=== PATIENT | male | born 1960 | race Caucasian/White ===

== ENCOUNTER 2017-01-14 08:58 | Observation (INO) | payer BC, OTHER ==
--- NOTE | ~2017-01-14 | DS ---
Unit #: [id number] #: [id number] Patient: ALEC VANEGAS [id number] [address] [address] [id number] MR#: [id number] NAME: ALEC VANEGAS ROOM: 55 Age: 56 Sex: M Admission Date: 01/14/2017 : 1960 Discharge Date: 01/16/2017 Attending Physician: Deepak Cramer M.D. Primary Care Physician: Natalie Russell M.D. DISCHARGE SUMMARY DISCHARGE DIAGNOSES 1. No known coronary artery disease, status post cardiac catheterization on 01/14/2017 elective case. 2. Status post percutaneous transluminal coronary angioplasty with drug-eluting Synergy stent placement to the mid right coronary artery 4.0 x 32 Synergy drug-eluting stent. 3. The patient underwent elective cardiac catheterization on 01/14/2017. Cardiac cath results are as follows; the patient had 99% in-stent stenosis in the mid right coronary artery. A 4.0 x 32 Synergy drug-eluting stent was placed and stenosis was decreased to approximately 50% and he also had a 70% distal, mid right coronary artery reduced to 0% with a 4 mm drug-eluting Synergy stent placed. Operative note is currently not available for review. 4. First diagonal was not dilated. 5. Previous angioplasties with stent insertion. 6. Last known ejection fraction was 45% per cardiac cath in 2007. 7. Hypertension. 8. Hyperlipidemia. 9. Type 2 diabetes mellitus. 10. Obesity. 11. Obstructive sleep apnea. 12. Tobacco abuse. The patient reports he is mostly quit, but is still smoking on occasion. DISCHARGE MEDICATIONS Metformin 500 mg p.o. b.i.d., Xanax 0.5 mg p.o. q.8 hours as needed for anxiety, carvedilol 6.25 mg p.o. b.i.d., rosuvastatin 40 mg p.o. q.h.s., lisinopril 2.5 mg p.o. daily, aspirin 81 mg p.o. daily, Brilinta 90 mg p.o. b.i.d., spironolactone 12.5 mg p.o. daily, Flexeril 10 mg p.o. t.i.d. as needed for muscle spasms, nitroglycerin tab sublingual 0.4 mg sublingual as needed for chest pain q.5 minutes x3, vitamin D 50,000 units p.o. weekly. HOSPITAL COURSE The patient has routinely followed with Dr. Cramer in the office. He reports he had seen Dr. Cramer and has been describing issues with chest discomfort as well as shortness of breath, therefore, they decided to proceed with repeat cardiac catheterization. This was scheduled electively on 01/14/2017. The patient has a known history of coronary artery disease having undergone angioplasty with stent insertion in the past on the circumflex Unit #: [id number] #: [id number] Patient: ALEC VANEGAS as well as the right coronary artery. Last procedure was 2013, the patient also has undergone repeat cardiac catheterization on 01/14/2017 which showed 99% in-stent stenosis to the mid RCA, this was reduced to 50%. A 4.0 x 32 Synergy drug-eluting stent was placed. The balloon was dilated to 4.7 mm. He also had a 70% distal RCA which was reduced to 0% with a 3.5 x 32 Synergy stent placed. The first diagonal was not dilated. No LVEF is noted per this report. The patient had been admitted and monitored. He did rule out for any acute coronary syndrome. His cardiac rhythm has remained stable. There has been no reperfusion ventricular tachycardia. No further complaints of chest pain in seeing him today. He was felt stable for discharge home. Dr. De La Cruz has agreed. The patient has been ambulated in the hallway without any deficits. His right groin site is soft. No evidence of hematoma or infection. He does have some slight soft bruising noted. Cardiac rhythm remains normal sinus rhythm, no complaints again of chest pain. The patient has been educated on post cardiac cath instructions as well as new medications that were started. CONSULTANTS No consultants. DIAGNOSTIC STUDIES LABORATORY RESULTS: Glucose 110, BUN 13, creatinine 0.7, sodium 140, potassium 4.1, chloride 106, CO2 of 24. Troponins have remained negative. Cholesterol 116, triglycerides 212, LDL 45, HDL 29. Hemoglobin 14.2, hematocrit 41.7, WBCs 8.9, and platelet count 203. CARDIOVASCULAR STUDIES: EKG shows normal sinus rhythm, rate 74 beats per minute, right bundle-branch block, left anterior fascicular block, QTc interval 481 msec. PHYSICAL EXAMINATION GENERAL: This is a pleasant 56-year-old male, who is in no acute distress. VITAL SIGNS: Temperature 97.8, respiratory rate 20, pulse is 81, and blood pressure 98/70 to 107/67. HEENT: Head is atraumatic and normocephalic. Mucous membranes are moist. NECK: Trachea is midline. No JVD. No carotid bruits. CARDIOVASCULAR: S1, S2. Regular rate and rhythm. No murmurs, gallops, or rubs. PULMONARY: LUNGS are clear to auscultation anterior, but diminished in the bases. ABDOMEN: Obese, soft, nontender, and nondistended. EXTREMITIES: Pulses are palpable. No clubbing, cyanosis, or edema. Right groin site from catheterization is soft with slight bruising. No evidence of hematoma or infection is noted. SKIN: Warm and dry. NEUROLOGIC: He is awake, alert, and oriented. He moves all extremities equally. He follows commands with ease. DISCHARGE INSTRUCTIONS The patient has been seen and evaluated by myself and Dr. De La Cruz today and it is felt he is stable to be discharged home. Cardiac rhythm has remained stable. Normal sinus rhythm with right bundle-branch block. The patient has had no further complaints of chest pain. He has ambulated in the [place] multiple times without any difficulty. His Plavix has been discontinued. He has been switched over to Brilinta 90 mg p.o. b.i.d., cost has been checked by the care management specialist and the patient says it is affordable at about 21 dollars per month. He will be sent home on Unit #: [id number] #: [id number] Patient: ALEC VANEGAS appropriate medications which include aspirin, Brilinta, dual antiplatelet therapy x1 year, spironolactone, beta-bria, Crestor which has been increased to 40 mg p.o. daily as the patient needs high-dose statin therapy, lisinopril 2.5 mg p.o. daily. Post cardiac catheterization instructions have been reviewed with the patient. All of his questions and concerns have been answered. The patient was also advised on new medications including which include Brilinta as well as the side effects regarding. He was advised to follow up with his primary care physician in 1 to 2 weeks and he will need to follow up with Dr. Cramer in the office in approximately 4 to 6 weeks. Dictated by... Nevaeh Mena A.P.R.N. for Lacy Brady/anil TD: 01/17/2017 07:31 JOB #: [id number] DISCHARGE SUMMARY Page 1 of 1 X Nevaeh Mena APRN X DISCHARGE SUMMARY
--- NOTE | ~2017-01-14 | EKG ---
PATIENT: ALEC VANEGAS UNIT #: [id number] Ventricular Rate: 83 BPM Atrial Rate: 83 BPM P-R Interval: 154 ms QRS Duration: 140 ms Q-T Interval: 416 ms QTC Calculation(Bezet): 488 ms P [place]: 59 degrees Calculated R [place]: -76 degrees Calculated T [place]: 24 degrees Diagnosis Line: Normal sinus rhythm Diagnosis Line: Left axis deviation Diagnosis Line: Right bundle branch block Diagnosis Line: Abnormal ECG Diagnosis Line: When compared with ECG of 14-JAN-2017 14:55, Diagnosis Line: (unconfirmed) Diagnosis Line: No significant change was found Diagnosis Line: Confirmed by KEVIN CARMICHAEL MD ([id number]) on 01/18/2017 Diagnosis Line: 10:30:20 PM INTERPRETING MD: JANY EMERY
--- NOTE | ~2017-01-14 | EKG ---
PATIENT: ALEC VANEGAS UNIT #: [id number] Ventricular Rate: 75 BPM Atrial Rate: 75 BPM P-R Interval: 156 ms QRS Duration: 152 ms Q-T Interval: 424 ms QTC Calculation(Bezet): 473 ms P [place]: 4 degrees Calculated R [place]: -64 degrees Calculated T [place]: -3 degrees Diagnosis Line: Normal sinus rhythm Diagnosis Line: Left axis deviation Diagnosis Line: Right bundle branch block Diagnosis Line: Abnormal ECG Diagnosis Line: When compared with ECG of 16-APR-2014 07:57, Diagnosis Line: No significant change was found Diagnosis Line: Confirmed by KEVIN CARMICHAEL MD ([id number]) on 01/18/2017 Diagnosis Line: 10:28:29 PM INTERPRETING MD: JANY EMERY
--- NOTE | ~2017-01-14 | EKG ---
PATIENT: ALEC VANEGAS UNIT #: [id number] Ventricular Rate: 74 BPM Atrial Rate: 74 BPM P-R Interval: 166 ms QRS Duration: 156 ms Q-T Interval: 434 ms QTC Calculation(Bezet): 481 ms P [place]: 42 degrees Calculated R [place]: -62 degrees Calculated T [place]: 2 degrees Diagnosis Line: Normal sinus rhythm Diagnosis Line: Right bundle branch block Diagnosis Line: Left anterior fascicular block Diagnosis Line: Bifascicular block Diagnosis Line: Abnormal ECG Diagnosis Line: When compared with ECG of 14-JAN-2017 18:09, Diagnosis Line: (unconfirmed) Diagnosis Line: No significant change was found Diagnosis Line: Confirmed by KEVIN CARMICHAEL MD ([id number]) on 01/18/2017 Diagnosis Line: 10:35:25 PM INTERPRETING MD: JANY EMERY
--- NOTE | ~2017-01-14 | EKG ---
PATIENT: ALEC VANEGAS UNIT #: [id number] Ventricular Rate: 77 BPM Atrial Rate: 77 BPM P-R Interval: 166 ms QRS Duration: 152 ms Q-T Interval: 416 ms QTC Calculation(Bezet): 470 ms P [place]: 55 degrees Calculated R [place]: -72 degrees Calculated T [place]: 20 degrees Diagnosis Line: Normal sinus rhythm Diagnosis Line: Left axis deviation Diagnosis Line: Right bundle branch block Diagnosis Line: Abnormal ECG Diagnosis Line: When compared with ECG of 14-JAN-2017 09:52, Diagnosis Line: (unconfirmed) Diagnosis Line: No significant change was found Diagnosis Line: Confirmed by KEVIN CARMICHAEL MD ([id number]) on 01/18/2017 Diagnosis Line: 10:29:24 PM INTERPRETING MD: JANY EMERY
[~2017-01-14 08:58] MED LIST: ALTACE PO; ASPIRIN PO; BENICAR HCT 40-1 TA2 PO; BENTYL20 MG PO; BYSTOLIC10 MG PO; COREG PO; CRESTOR10 MG PO; FLEXERIL10 MG PO; LORTAB 5-325 M1 EACH PO; METFORMIN HCL500 M1 PO; MOBIC PO; NORCO1 TAB 10/3 PO; PHENERGAN25 M1 PO; PLAVIX PO; PREDNISONE PO; VYTORIN 10/80 T1 TAB PO
[2017-01-14] MEDS ORDERED: COREG3.125 MG PO (09:14)
[2017-01-14] MEDS ORDERED: PLAVIX PO (09:14)
[2017-01-14] MEDS ORDERED: LISINOPRIL2.5 MG PO (09:14)
[2017-01-14] MEDS ORDERED: VITAMIN D50000 UNIT PO (09:15)
[2017-01-14] MEDS ORDERED: ASPIRIN EC81 M1 PO (09:15)
[2017-01-14] MEDS ORDERED: ALDACTONE25 MG PO (09:15)
[2017-01-14 09:47] LABS: HEMATOCRIT 44.6 % (38.0-50.0); HEMOGLOBIN 14.7 gm/dL (13.0-16.0); MEAN CORPUSCULAR HEMOGLOBIN 29.1 PG (28-34); MEAN PLATELET VOLUME 8.3 FL (6.5-11.5); RED BLOOD COUNT 5.07 X10e (3.90-5.60); RED CELL DISTRIBUTION WIDTH 13.1 % (11.0-15.5); WHITE BLOOD COUNT 6.4 X10e3 (4.0-10.5)
[2017-01-14] MEDS ORDERED: NITROQUICK0.4 MG SL (09:51)
[2017-01-14] MEDS ORDERED: ALPRAZOLAM PO (09:52)
[2017-01-14 10:11] LABS: PARTIAL THROMBOPLASTIN TIME 24.7 SECONDS (23.5-31.3); PROTHROMBIN TIME (PATIENT) 10.1 SECONDS (9.6-11.5)
[2017-01-14 10:19] LABS: BUN/CREATININE RATIO 21.42; CALCIUM SERUM 9.2 mg/dL (8.4-10.2); CREATININE SERUM 0.7 mg/dL (0.6-1.4); GLOM FILT RATE Estimated 105.5 mL/min (>60); POTASSIUM 4.2 mmol/L (3.5-5.1)
[2017-01-14 19:00] LABS: CK TOTAL 55 IU/L (36-174)
[2017-01-14 23:18] LABS: ANGIO %MB 1.5 % (0.0-4.0); ANGIO MB 0.9 ng/ml
[2017-01-15 06:55] LABS: BUN/CREATININE RATIO 21.25; CALCIUM SERUM 9.2 mg/dL (8.4-10.2); CREATININE SERUM 0.8 mg/dL (0.6-1.4); GLOM FILT RATE Estimated 99.9 mL/min (>60); POTASSIUM 3.9 mmol/L (3.5-5.1)
[2017-01-15 07:28] LABS: ANGIO %MB 2.1 % (0.0-4.0); ANGIO MB 1.3 ng/ml
[2017-01-16 05:13] LABS: HEMATOCRIT 41.7 % (38.0-50.0); HEMOGLOBIN 14.2 gm/dL (13.0-16.0); MEAN CELL VOLUME 87.4 FL (83-96); MEAN CORPUSCULAR HEMOGLOBIN 29.6 PG (28-34); MEAN CORPUSCULAR HGB CONC 33.9 g/dL (30-36); MEAN PLATELET VOLUME 8.6 FL (6.5-11.5); RED BLOOD COUNT 4.78 X10e (3.90-5.60); RED CELL DISTRIBUTION WIDTH 13.5 % (11.0-15.5); WHITE BLOOD COUNT 8.9 X10e3 (4.0-10.5)
[2017-01-16 06:28] LABS: BUN/CREATININE RATIO 18.57; CALCIUM SERUM 9.7 mg/dL (8.4-10.2); CREATININE SERUM 0.7 mg/dL (0.6-1.4); GLOM FILT RATE Estimated 105.5 mL/min (>60); POTASSIUM 4.1 mmol/L (3.5-5.1)
[2017-01-16] MEDS ORDERED: CRESTOR40 MG PO (14:56)
[2017-01-16] MEDS ORDERED: BRILINTA90 MG PO (14:56)
== END 2017-01-16 15:30 | disposition home or self-care (01) | DRG 315 ==
LOC: CCVL 08:58 → CPACUOF 12:28 → C5B 16:41
PROVIDERS: Internal Medicine Cardiovascular Disease; Nurse Practitioner
DX: T82.855A Stenosis of coronary artery stent, initial encounter (principal); T82.218A Other mechanical complication of coronary artery bypass graft, initial encounter; I25.110 Atherosclerotic heart disease of native coronary artery with unstable angina pectoris; Y71.3 Surgical instruments, materials and cardiovascular devices (including sutures) associated with adverse incidents; E11.9 Type 2 diabetes mellitus without complications; I10 Essential (primary) hypertension; E78.5 Hyperlipidemia, unspecified; E66.9 Obesity, unspecified; Z79.84 Long term (current) use of oral hypoglycemic drugs; G47.33 Obstructive sleep apnea (adult) (pediatric); Z79.82 Long term (current) use of aspirin; Z79.02 Long term (current) use of antithrombotics/antiplatelets; Z72.0 Tobacco use
CPT/HCPCS: 93459; C9600; 36415; 80048; 80061; 82550; 82553; 82947; 84484; 85027; 85347; 85610; 85730; 93005; 96365; 96366; 96372; 96375; C1725; C1769; C1874; C1887; C1894; G0378; J0153; J0461; J1200; J1327; J1644; J2250; J2270; J2370; J2405; J3010